=== PATIENT | male | born 1955 | race Caucasian/White ===

== ENCOUNTER 2021-11-15 11:36 | Day surgery (SDC) | payer MEDICARE, OTHER ==
[~2021-11-15] VITALS: Ht 188 cm; Wt 85.3 kg
[2021-11-15] VITALS (7 sets, daily range): BP systolic 122–146; BP diastolic 62–80; PULSE 66–80; TEMP 97.2–98.2
[~2021-11-15 11:36] MED LIST: ASPIRIN E.C. 8181 MG PO; MULTIPLE VITAMI1 TA5 PO
[2021-11-15] MEDS ORDERED: LIPITOR 40MG TA40 MG PO (12:49)
[2021-11-15] MEDS ORDERED: MOTRIN 600600 MG/TAB PO (13:05)
[2021-11-15] MEDS ORDERED: NORCO 325 MG-51 TAB PO (13:06)
--- NOTE | 2021-11-15 18:47 | NUR ---
REPORT FROM [facility] PACU @2299. PT IS A/O X4, LUNGS CTA, BOWEL SOUNDS HYPO. ROBOTIC SITES X4 CDI
--- NOTE | 2021-11-15 19:30 | NUR ---
Bedside shift report received, assumed care for warehouse shift supervisor. Assessment complete. A&Ox3. Denies pain/nausea/shortness of breath. Post op vitals in progress and currently stable. Lap sites x4-edges well approximated. Plan of care discussed for discharge later this shift if discharge criteria met. Verbalizes understanding. Call light in reach. Will monitor.
--- NOTE | 2021-11-15 20:30 | NUR ---
Discharge criteria met. Post op vitals stable. Denies pain/nausea/shortness of breath. Tolerated PO. Has voided. Discharge instructions given both verbal and handwritten. Discussed post op appt/activity/diet and S/S of infection. Verbalizes understanding. Denies questions. INT to right hand DCd-cath intact. Escorted off floor in wheelchair by ENID GERMAIN in stable condition.
== END 2021-11-15 20:30 | disposition home or self-care (01) ==
LOC: SDCO 11:36 → SURG 18:08 → SDCO 20:30
DX: K35.32 Acute appendicitis with perforation, localized peritonitis, and gangrene, without abscess (principal); K38.8 Other specified diseases of appendix
CPT/HCPCS: J0690; J1100; J2405; J2704; J3010; J7120